=== PATIENT | female | born 1950 ===

== ENCOUNTER 2021-06-18 15:40 | Outpatient (REF) | payer MEDICARE, SELFPAY ==
[2021-06-18 22:12] LABS: ALT 32 U/L (14-59); AST 29 U/L (15-37); Albumin 3.3 g/dL (3.4-5.0); Alkaline Phosphatase 116 U/L (46-116); BUN 14 mg/dL (7-18); Bilirubin, Total 0.4 mg/dL (0.2-1.0); Chloride 107 mmol/L (98-107); Creatine Kinase 370 U/L (26-192); Estimated GFR 54.97 (mL/min/1.73m2); Glucose 97 mg/dL (74-106); Potassium 3.1 mmol/L (3.5-5.1); Sodium 142 mmol/L (136-145); Total Protein 6.1 g/dL (6.4-8.2)
== END 2021-06-18 15:41 | disposition home or self-care (01) ==
LOC: NCHCN 15:40
PROVIDERS: PCP Family Medicine; Visit Provider Nurse Practitioner Community Health
DX: E87.1 Hypo-osmolality and hyponatremia (principal); M62.82 Rhabdomyolysis
CPT/HCPCS: 80053; 82550

== ENCOUNTER 2021-06-25 13:46 | Outpatient (REF) | payer MEDICARE, SELFPAY ==
[2021-06-25 22:17] LABS: BUN 14 mg/dL (7-18); CREATININE 0.9 mg/dL (0.55-1.02); Calcium 9.1 mg/dL (8.5-10.1); Chloride 108 mmol/L (98-107); Creatine Kinase 63 U/L (26-192); Glucose 103 mg/dL (74-106); Potassium 3.9 mmol/L (3.5-5.1); Sodium 144 mmol/L (136-145)
== END 2021-06-25 13:47 | disposition home or self-care (01) ==
LOC: NCHCN 13:46
PROVIDERS: PCP Family Medicine; Visit Provider Nurse Practitioner Community Health
DX: E87.6 Hypokalemia (principal); M62.82 Rhabdomyolysis
CPT/HCPCS: 80048; 82550